=== PATIENT | male | born 1990 | race American Indian/Alaskan Native ===

== ENCOUNTER 2017-02-26 14:11 | Emergency (ER) | payer OTHER ==
[2017-02-26 14:31] VITALS: BP 152/89
[2017-02-26] MEDS ORDERED: MOTRIN PO ONE (16:47)
[2017-02-26] MEDS ORDERED: FLEXERIL PO ONE (16:47)
--- NOTE | 2017-02-26 16:57 | Emergency Department Report ---
HPI - General Chief Complaint: Extremity Injury, Lower Time Seen by Provider: 02/26/17 16:12 - HPI HPI: Patient is a 27-year-old male who presents to the complaining of worsening right foot pain testing going on for the past 2 days. 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 Patient states he did not have any injuries or trauma to the foot. Patient describes the pain as throbbing and aching in nature that is localized to his ankle and foot. He denies fevers/chills/nausea/abdominal pain/chest pain or any other problems. Patient denies difficulty walking ED Past Medical Hx - Past Medical History Previous Medical History?: Yes Hx Hypertension: Yes - Surgical History Past Surgical History?: No - Social History Smoking Status: Never Smoker Substance Use Type: Prescribed - Medications Home Medications: Home Medications Medication Instructions Recorded Confirmed Last Taken Type Cyclobenzaprine [Flexeril 10 MG 10 mg PO QHS #20 tablet 02/26/17 Unknown Rx TAB] Ibuprofen [Motrin 800 MG tab] 800 mg PO Q8H #30 tablet 02/26/17 Unknown Rx ED Review of Systems ROS: Stated complaint: RIGHT FOOT/ANKLE PAIN Other details as noted in HPI Constitutional: denies: chills, fever Eyes: denies: eye pain, eye discharge, vision change ENT: denies: ear pain, throat pain Respiratory: denies: cough, shortness of breath, wheezing Cardiovascular: denies: chest pain, palpitations Endocrine: no symptoms reported Gastrointestinal: denies: abdominal pain, nausea, diarrhea Genitourinary: denies: urgency, dysuria Musculoskeletal: arthralgia, myalgia. denies: back pain, joint swelling Skin: denies: rash, lesions Neurological: denies: headache, weakness, paresthesias Psychiatric: denies: anxiety, depression Hematological/Lymphatic: denies: easy bleeding, easy bruising Physical Exam - Physical Exam Vital Signs: Vital Signs 02/26/17 14:26 Temperature 98.3 F Pulse Rate 99 H Respiratory 20 Rate Blood Pressure 152/89 O2 Sat by Pulse 97 Oximetry Physical Exam: GENERAL: Alert and oriented x3, no apparent distress, Normal Gait, atraumatic. HEAD: Head is normocephalic and a-traumatic. HEART: S1, S2 present, regular rate and rhythm without murmur, no rubs, no gallops. Non tender to palpation EXTREMITIES/MUSCULOSKELETAL: No cyanosis, clubbing, rash, lesions or edema. Full ROM of foot and ankle bilaterally. LE Pulses 2+ bilaterally. LE a 5+ strength bilaterally, right ankle of foot shows no swelling, patient able to flex and plantar flex with no problems. No erythema no pitting edema. No deformity seen NEUROLOGIC: The patient is cooperative with no focal neurologic deficits. Normal speech. Normal sensation in bilateral upper and lower extremities, No loss of sensation, SKIN: Warm and dry, No lesions, No ulceration or induration present. ED Course Vital Signs 02/26/17 14:26 Temperature 98.3 F Pulse Rate 99 H Respiratory 20 Rate Blood Pressure 152/89 O2 Sat by Pulse 97 Oximetry ED Medical Decision Making - Radiology Data Radiology results: report reviewed, image reviewed FINAL REPORT EXAM: XR ANKLE 3+V RT HISTORY: right ankle pain TECHNIQUE: 3 views of the right ankle PRIORS: None. FINDINGS: There is no definite radiographic evidence of acute fracture or dislocation. No evidence of osseous lesion. Joint spaces are maintained. There is no evidence of significant arthrosis. IMPRESSION: No acute skeletal pathology Transcribed By: AGUILA Dictated By: ELOINA YU MD Electronically Authenticated By: ELOINA YU MD Signed Date/Time: 02/26/17 1257 - Medical Decision Making 27-year-old male presents with foot arthralgia the right ED course: Patient received Motrin and Flexeril in ED. Vital signs are normal patient is in no acute distress Discussed with patient follow-up with primary care physician. Discussed the patient and take medications as prescribed. Patient has no neurological deficit. Patient is alert and oriented 3 and understands all instructions given. Discussed drowsiness effect of Flexeril makes her drowsy and not to operate machinery while taking flexeril Critical care attestation.: If time is entered above; I have spent that time in minutes in the direct care of this critically ill patient, excluding procedure time. ED Disposition Clinical Impression: Right foot strain Qualifiers: Encounter type: initial encounter Qualified Code(s): S96.911A - Strain of unspecified muscle and tendon at ankle and foot level, right foot, initial encounter Disposition: DC- TO HOME OR SELFCARE Is pt being admited?: No Does the pt Need Aspirin: No Condition: Stable Instructions: Arthralgia (ED), Ankle Exercises (GEN), Heat Pack Application (ED ) Additional Instructions: Make sure to follow up with the primary care physician as discussed. Take all your medications as you've been prescribed. If you have any worsening symptoms or develop new symptoms please return to ED immediately. Prescriptions: Cyclobenzaprine [Flexeril 10 MG TAB] 10 mg PO QHS #20 tablet Ibuprofen [Motrin 800 MG tab] 800 mg PO Q8H #30 tablet Referrals: DESTINEE TAVARES MD [Primary Care Provider] - 3-5 Days SEGUNDO HERRERA MD [Staff Physician] - 3-5 Days Forms: Work/School Release Form Time of Disposition: 16:59
--- NOTE | 2017-02-26 17:01 | XRay Report ---
FINAL REPORT EXAM: XR ANKLE 3+V RT HISTORY: right ankle pain TECHNIQUE: 3 views of the right ankle PRIORS: None. FINDINGS: There is no definite radiographic evidence of acute fracture or dislocation. No evidence of osseous lesion. Joint spaces are maintained. There is no evidence of significant arthrosis. IMPRESSION: No acute skeletal pathology
== END 2017-02-26 17:25 | disposition home or self-care (01) ==
LOC: ED 14:11
DX: S96.911A Strain of unspecified muscle and tendon at ankle and foot level, right foot, initial encounter (principal); I10 Essential (primary) hypertension; X58.XXXA Exposure to other specified factors, initial encounter; Y93.89 Activity, other specified; Y92.89 Other specified places as the place of occurrence of the external cause; Y99.8 Other external cause status
CPT/HCPCS: 99283

== ENCOUNTER 2017-11-15 19:04 | Emergency (ER) | payer OTHER ==
[2017-11-15 19:26] VITALS: BP 163/94
--- NOTE | 2017-11-15 20:35 | Emergency Department Report ---
[facility] Chief Complaint: Eye Problems Stated Complaint: RIGHT EYE PAIN Time Seen by Provider: 11/15/17 20:25 Duration: 1 week Side: Right Severity: moderate Symptoms: Yes Eye Itching, Yes Eye Redness, Yes Eye Pain, Yes Mucous Drainage, Yes Purulent Drainage, No Blurred Vision, No Preceding URI, No H/O Allergic Rhinitis, No Contact Lens Use, No Trauma, No Fever, No Headache Other History: 27 0 after [place] male comes in complaining of right eye pain and itchiness 1 week. Patient admits to drainage, photophobia. Discharge matting eyelashes and feels like symptoms in it. Patient denies any fever chills or nausea no vomiting. Patient does have a past medical history of hypertension currently takes lisinopril 20 mg daily as well as gout. ED Review of Systems ROS: Stated complaint: RIGHT EYE PAIN Other details as noted in HPI Comment: All other systems reviewed and negative Eyes: eye pain, eye discharge ED Past Medical Hx - Past Medical History Hx Hypertension: Yes Additional medical history: GOUT - Surgical History Past Surgical History?: No - Social History Smoking Status: Never Smoker Substance Use Type: None - Medications Home Medications: Home Medications Medication Instructions Recorded Confirmed Last Taken Type Cyclobenzaprine [Flexeril 10 MG 10 mg PO QHS #20 tablet 02/26/17 Unknown Rx TAB] Ibuprofen [Motrin 800 MG tab] 800 mg PO Q8H #30 tablet 02/26/17 Unknown Rx Erythromycin [Erythromycin Ophth 1 strip OD QID 10 Days #1 tube 11/15/17 Unknown Rx Oint] [facility] Exam - Exam General: Vital signs noted. No distress. Alert and acting appropriately. Eye Exam: Right Injection, Right EOMI, Right Mucous Discharge, Right Purulent Discharge, Right Photophobia, Neither Abnormal Pupil, Neither Eye Foreign Body, Neither Lid Foreign Body HEENT: No Nasal Congestion, No Pharyngeal Erythema Lungs: Yes Clear Lung Sounds, Yes Good Air Exchange ED Course Vital Signs 11/15/17 19:22 Temperature 98.8 F Pulse Rate 80 Respiratory 18 Rate Blood Pressure 163/94 O2 Sat by Pulse 99 Oximetry ED Medical Decision Making - Medical Decision Making Patient has been evaluated by this provider faster. Patient appears to have a simple right eye conjunctivitis Discussed with patient a place him on erythromycin ointment Patient to follow-up with his primary care provider if symptoms persist or gets worse. Critical care attestation.: If time is entered above; I have spent that time in minutes in the direct care of this critically ill patient, excluding procedure time. ED Disposition Clinical Impression: Acute conjunctivitis, right eye Qualifiers: Acute conjunctivitis type: unspecified Qualified Code(s): H10.31 - Unspecified acute conjunctivitis, right eye Disposition: DC- TO HOME OR SELFCARE Is pt being admited?: No Does the pt Need Aspirin: No Condition: Stable Instructions: Conjunctivitis (ED) Additional Instructions: Please use eye ointment as prescribed. Please wash her hands prior to and after administration of medication. Please continue to take your hypertensive medicine as prescribed by your primary care provider. Prescriptions: Erythromycin [Erythromycin Ophth Oint] 1 strip OD QID 10 Days #1 tube
== END 2017-11-15 20:52 | disposition home or self-care (01) ==
LOC: ED 19:04
DX: H10.31 Unspecified acute conjunctivitis, right eye (principal); I10 Essential (primary) hypertension
CPT/HCPCS: 99282